=== PATIENT | female | born 1930 | race Caucasian/White ===

== ENCOUNTER 2016-07-04 10:09 | Inpatient (IN) | payer OTHER ==
[~2016-07-04] VITALS: Ht 152.4 cm; Wt 64.0 kg
[2016-07-04] VITALS (15 sets, daily range): BP systolic 132–154; BP diastolic 62–78
[2016-07-04] MEDS ORDERED: TETANUS, DIPHTHERIA, PERTUSSIS VAC/PF 0.5ML (>7YR OLD) IM ONE (11:00)
[2016-07-04] MEDS ORDERED: BACITRACIN ZINC OINT UDPKT TOP ONE (11:00)
[2016-07-04 11:07] LABS: BASOPHILS % 0.4 % (0.0-2.0); EOSINOPHILS % 5.6 % (0.0-5.0); HEMATOCRIT. 37.9 % (36.0-48.0); HEMOGLOBIN. 13.3 g/dL (12.0-16.0); MEAN CORPUSCULAR HEMOGLOBIN 30.7 pg (28.0-32.0); MEAN CORPUSCULAR VOLUME 87.5 fL (81.0-99.0); MEAN PLATELET VOLUME 9.3 fl (7.4-10.4); MONOCYTES % 6.1 % (2.0-8.0); NEUTROPHILS % 75.9 % (40.0-76.0); PLATELET 216 x1000/uL (130-400); RED BLOOD CELL COUNT 4.33 mill/uL (4.2-5.4); RED CELL DISTRIBUTION WIDTH 13.8 % (11.6-14.6); WHITE BLOOD COUNT 10.3 x1000/uL (4.5-11.0)
[2016-07-04 11:15] LABS: PROTHROMBIN TIME 10.9 sec
[2016-07-04 11:22] LABS: ANION GAP 9; CALCIUM 8.2 mg/dL (8.5-10.1); CARBON DIOXIDE 33 mEq/L (21-32); CHLORIDE 102 mEq/L (98-107); INDEX HEMOLYSI 1 (1-3); INDEX ICTERIC 1 (1-4); INDEX LIPEMIC 1 (1-3); TROPONIN I < 0.02 ng/mL (0.00-0.04); UREA NITROGEN BLOOD 13 mg/dL (7-21); eGFR > 60 mL/min (>60)
[2016-07-04] MEDS ORDERED: POTASSIUM CHLORIDE 20MEQ TABLET SR PO ONE (12:45)
[2016-07-04] MEDS ORDERED: PHENYTOIN SODIUM 500 MG in SODIUM CHLORIDE 0.9% 50 ML IV ONE (14:00)
[2016-07-04 14:15] LABS: ALBUMIN 3.7 g/dL (3.4-5.0); BILIRUBIN DIRECT 0.2 mg/dL (0.0-0.2)
[2016-07-04] MEDS ORDERED: GADOBENATE DIMEGLUMINE 529 MG/ML 10ML IV ONE (14:34)
[2016-07-04] MEDS ORDERED: PHENYTOIN SODIUM EXTENDED 100MG CAPSULE PO SCH (17:00)
[2016-07-04] MEDS ORDERED: ACETAMINOPHEN 325MG TABLET PO PRN (17:00)
[2016-07-04] MEDS ORDERED: DIPHENHYDRAMINE 50MG/ML VIAL IV PRN (17:00)
[2016-07-04] MEDS ORDERED: MAGNESIUM/ALUMINUM HYDROXIDE/SIMETHICONE 30ML UDC PO PRN (17:00)
[2016-07-04] MEDS ORDERED: CLONIDINE 0.1MG TABLET PO PRN (17:00)
[2016-07-04] MEDS ORDERED: ONDANSETRON HCL 4MG/2ML VIAL IV PRN (17:00)
[2016-07-04] MEDS ORDERED: LORAZEPAM 2MG/ML CPJ IV PRN (17:00)
[2016-07-04] MEDS ORDERED: DOCUSATE SODIUM 100MG CAPSULE PO PRN (17:00)
[2016-07-04] MEDS ORDERED: IPRATROPIUM/ALBUTEROL 0.5-3(2.5)MG/3ML NEB INH PRN (17:00)
[2016-07-04] MEDS ORDERED: ACETAMINOPHEN 650MG/20.3ML UDC GT PRN (17:00)
[2016-07-04] MEDS ORDERED: MORPHINE SULFATE 2 MG/ML CPJ (NOT FOR IM USE) IV PRN (17:45)
[2016-07-04] MEDS: DEXT 5%/LACTATED RINGERS 1,000 ML IV SCH (18:23)
[2016-07-04] MEDS ORDERED: NICARDIPINE 100 MG in DEXT 5% WATER 60 ML IV PRN (18:30)
[2016-07-04] MEDS ORDERED: SULF1TAB47 PO (18:40)
[2016-07-04] MEDS ORDERED: NIFE30TA94 PO (18:40)
[2016-07-04] MEDS ORDERED: LEVO100T9 PO (18:40)
[2016-07-04] MEDS ORDERED: ASPI-1035 PO (18:40)
[2016-07-04] MEDS ORDERED: [UNRECOGNIZED DRUG - CODE] PO (18:40)
[2016-07-04] MEDS ORDERED: BACI3.5O24 TOP (18:40)
[2016-07-04] MEDS: PHENYTOIN SODIUM 100MG/2ML VIAL IV SCH (22:37)
[2016-07-04 23:08] LABS: CLARITY URINE CLEAR (CLEAR); COLOR URINE YELLOW (YELLOW); GLUCOSE URINE NEGATIVE (NEGATIVE); KETONES URINE NEGATIVE (NEGATIVE); LEUKOCYTE ESTERASE URINE NEGATIVE (NEGATIVE); NITRITE URINE NEGATIVE (NEGATIVE); OCCULT BLOOD URINE NEGATIVE (NEGATIVE); PROTEIN URINE NEGATIVE (NEGATIVE); SPECIFIC GRAVITY URINE 1.012 (1.005-1.030); UROBILINOGEN URINE 0.2 E.U./dL (0.2-1.0)
[2016-07-04 23:31] LABS: *AMPHETAMINES SCREEN URINE NEGATIVE (NEGATIVE); *BARBITURATES SCREEN URINE NEGATIVE (NEGATIVE); *BENZODIAZEPINES SCREEN URINE NEGATIVE (NEGATIVE); *COCAINE SCREEN URINE NEGATIVE (NEGATIVE); CANNABINOID URINE SCREEN NEGATIVE (NEGATIVE); ECSTASY MDMA SCREEN URINE NEGATIVE (NEGATIVE); METHADONE URINE SCREEN NEGATIVE (NEGATIVE); OPIATES URINE SCREEN NEGATIVE (NEGATIVE); PHENCYCLIDINE URINE SCREEN NEGATIVE (NEGATIVE)
[2016-07-05] VITALS (28 sets, daily range): BP systolic 65–160; BP diastolic 33–87
[2016-07-05 05:20] LABS: BASOPHILS % 0.6 % (0.0-2.0); EOSINOPHILS % 7.8 % (0.0-5.0); HEMOGLOBIN. 12.8 g/dL (12.0-16.0); LYMPHOCYTES % 15.8 % (20.0-50.0); MEAN CORPUSCULAR HEMOGLOBIN 30.4 pg (28.0-32.0); MEAN CORPUSCULAR HGB CONC 34.6 g/dL (31.0-37.0); MEAN CORPUSCULAR VOLUME 87.7 fL (81.0-99.0); MEAN PLATELET VOLUME 9.9 fl (7.4-10.4); MONOCYTES % 6.8 % (2.0-8.0); PLATELET 215 x1000/uL (130-400); RED BLOOD CELL COUNT 4.21 mill/uL (4.2-5.4); RED CELL DISTRIBUTION WIDTH 14.1 % (11.6-14.6); WHITE BLOOD COUNT 9.3 x1000/uL (4.5-11.0)
[2016-07-05 05:39] LABS: ANION GAP 11; CALCIUM 8.2 mg/dL (8.5-10.1); CARBON DIOXIDE 31 mEq/L (21-32); CHLORIDE 103 mEq/L (98-107); INDEX HEMOLYSI 1 (1-3); INDEX ICTERIC 1 (1-4); INDEX LIPEMIC 1 (1-3); UREA NITROGEN BLOOD 11 mg/dL (7-21)
[2016-07-05 05:40] LABS: eGFR > 60 mL/min (>60)
[2016-07-05] MEDS: PHENYTOIN SODIUM 100MG/2ML VIAL IV SCH (05:48)
[2016-07-05] MEDS: DEXT 5%/LACTATED RINGERS 1,000 ML IV SCH (05:48)
[2016-07-05] MEDS ORDERED: LEVOTHYROXINE SODIUM 100MCG TABLET PO SCH (07:15)
[2016-07-05] MEDS ORDERED: POTASSIUM CHLORIDE INJ 40 MEQ in DEXT 5% WATER 250 ML IV NR (08:00)
[2016-07-05] MEDS ORDERED: PHENYTOIN SODIUM EXTENDED 100MG CAPSULE PO SCH (14:00)
[2016-07-05] MEDS ORDERED: PHEN100C4 PO (15:26)
== END 2016-07-05 16:00 | disposition home or self-care (01) | DRG 64 ==
LOC: ER 10:09 → MICUSO 14:05
PROVIDERS: ADMIT Internal Medicine Nephrology; ATTEND Internal Medicine Nephrology
DX: I61.1 Nontraumatic intracerebral hemorrhage in hemisphere, cortical (principal); J96.00 Acute respiratory failure, unspecified whether with hypoxia or hypercapnia; E87.6 Hypokalemia; W19.XXXA Unspecified fall, initial encounter; I10 Essential (primary) hypertension; Z79.82 Long term (current) use of aspirin; Z79.899 Other long term (current) drug therapy
CPT/HCPCS: 36415; 70450; 70486; 70553; 71010; 80048; 80076; 80305; 81003; 84484; 85025; 85610; 85730; 90471; 90715; 93005; 96365; 99285; A9577; J1165; J3480; J7060